=== PATIENT | female | born 1950 | race Caucasian/White ===

== ENCOUNTER 2024-01-04 08:36 | Outpatient (AMB) | payer MEDICARE, SELFPAY ==
--- NOTE | 2024-01-04 08:43 | A.OFFVIS_ITS ---
Intake Vital Signs 01/04/24 08:48 Height 5 ft 6 in BP 117/64 Blood Pressure Location Lt brachial Position Sitting Pulse 80 Intake Visit Reasons: Colonoscopy Screening Intake Note: Criselda presents in the office as a colonoscopy screening. CC: She states that she is due for a colonoscopy Instructional Support Specialist Required: No Allergies No Known Allergies Allergy (Verified 01/04/24 08:45) Medication List - Last Reconciled 01/04/24 by Roxanne Buckner PA-C calcium carbonate (Calcium) 600 mg PO BID latanoprost 0.005% 1 drp ophthalmic (eye) DAILY HPI HPI Comments History of Present Illness Details A 73 y/o female with personal hx colon polyps- last colon 2019=- Zeroogian- Bowel pattern- normal - maintainf HFD- She has no GI or general issues She takes no prescription medications She has no nausea, vomiting, hematemesis, hematochezia fever chills No cardiac or respiratory issues PFSH Medical History Hx of sigmoidoscopy Surgical History Hx of colonoscopy Family History Sister Clear cell carcinoma Social History (Updated 01/04/24 @ 08:56 by Roxanne Buckner PA-C) Household Members Other:: - no children Alcohol intake: current Comment: social Patient Tobacco Use Status: Never used Tobacco Current occupational status: retired Current occupation: 2014- [employer] Review of Systems Const All systems reviewed & are unremarkable except as noted in HPI and below Card Denies chest pain and Denies dyspnea Resp Denies dyspnea GI Denies abdominal pain, Denies heartburn, Denies diarrhea and Denies nausea Physical Exam Vital Signs: Last Vital Signs Pulse 80 01/04/24 08:48 BP 117/64 01/04/24 08:48 Const General: cooperative, healthy appearing, comfortable and no acute distress Orientation/consciousness: patient oriented x3 Limitations: no limitations Eyes Sclerae: sclerae normal Resp Effort & Inspection: normal respiratory effort Auscultation: clear to auscultation bilaterally, no rales, no rhonchi and no wheezes Cardio Rate: regular rate Rhythm: regular rhythm Heart sounds: S1 normal heart sound present and S2 normal heart sound present GI Palpation (GI): Soft to palpation and nontender Auscultation: normal bowel sounds Skin General skin exam: no rashes or lesions noted Neuro General: patient oriented x3 Extrem General: Yes full ROM Psych Appearance: grossly normal and well kempt Mental Status: mental status grossly normal Speech and movement: Normal speech and movement present and Clear speech present Affect: normal affect and Labile affect present Attitude: cooperative Thought process: Normal thought process present Thought content: Normal thought content present Insight: Good insight present (Psych) Judgement: Good judgement present (Psych) Assessment & Plan Assessment & Plan (1) Hx of colonoscopy with polypectomy: Comment: Discussed procedure, rare risks need for escort Code(s): Z98.890 - Other specified postprocedural states; Z86.010 - Personal history of colonic polyps Plan: Polyp surveillance colonoscopy Plan polyp surveillance colon MG-prep no med issues may call for results Patient Instructions: polyp surveillance colon MG-prep, reviewed literature given no med issues may call for results Coding Level of Care Code New Pt Level 3 (45229) Diagnoses Hx of colonoscopy with polypectomy Z98.890; Z86.010 Time Spent (min) 25
[2024-01-04 08:48] VITALS: BP 117/64; PULSE 80
== END 2024-01-04 09:17 | disposition home or self-care (01) ==
PROVIDERS: PCP Family Medicine; Visit Provider Physician Assistant
DX: Z98.890 Other specified postprocedural states (principal); Z86.010 Personal history of colon polyps
CPT/HCPCS: 99203

== ENCOUNTER → 2024-01-04 08:36 | Outpatient (BNVA) | payer MEDICARE, SELFPAY | PROVIDERS: PCP Family Medicine; Visit Provider Physician Assistant | DX: Z86.010 Personal history of colon polyps (principal); Z98.890 Other specified postprocedural states | CPT/HCPCS: 99202 ==

== ENCOUNTER 2024-05-15 09:34 | Day surgery (SDC) | payer MEDICARE, SELFPAY ==
--- NOTE | 2024-05-13 15:26 | P.CONAN_ITS ---
Documented by User: Mary Ann Persaud NP 05/13/24 15:27 HPI - Anesthesia Eval Consult details Narrative: 74yo F for Colonoscopy PMFSH Active Problems Active Problems: All Active Problems Hx of colonoscopy with polypectomy (Acute) Past Medical History Medical History Hx of sigmoidoscopy Family History Family History Sister Clear cell carcinoma Surgical History Surgical History Hx of colonoscopy Social History Social History (Updated 01/04/24 @ 08:56 by Roxanne Buckner PA-C) Household Members Other:: - no children Alcohol intake: current Comment: social Patient Tobacco Use Status: Never used Tobacco Use of substances other than those prescribed or required for medical reasons: No Are you DNR?: No Advance Directives: No Advance Directives Information Provided: Yes Current occupational status: retired Current occupation: [employer] Allergies Allergy/AdvReac Type Severity Reaction Status Date / Time No Known Allergies Allergy Verified 05/15/24 10:15 Home Medications ?Medication ?Instructions ?Recorded ?Confirmed ?Last Taken ?Type calcium carbonate (Calcium 600) 600 mg PO BID 01/04/24 05/15/24 Unknown History latanoprost 0.005 % eye drops 1 drp ophthalmic (eye) DAILY 01/04/24 05/15/24 Unknown History Assessment and Plan Assessment Anesthesia Assessment: Chart Reviewed Documented by User: Makenna Melara MD 05/15/24 10:38 [facility] Past Medical History Medical History Hx of sigmoidoscopy Family History Family History Sister Clear cell carcinoma Family history of problems with anesthesia: No Surgical History Surgical History Hx of colonoscopy History of Problems with Anesthesia: No Social History Social History (Updated 01/04/24 @ 08:56 by Roxanne Buckner PA-C) Household Members Other:: - no children Alcohol intake: current Comment: social Patient Tobacco Use Status: Never used Tobacco Use of substances other than those prescribed or required for medical reasons: No Are you DNR?: No Advance Directives: No Advance Directives Information Provided: Yes Current occupational status: retired Current occupation: [employer] Allergies Allergy/AdvReac Type Severity Reaction Status Date / Time No Known Allergies Allergy Verified 05/15/24 10:15 Home Medications ?Medication ?Instructions ?Recorded ?Confirmed ?Last Taken ?Type calcium carbonate (Calcium 600) 600 mg PO BID 01/04/24 05/15/24 Unknown History latanoprost 0.005 % eye drops 1 drp ophthalmic (eye) DAILY 01/04/24 05/15/24 Unknown History Exam Airway Mallampati Class: III TM Dist: >3cm Neck ROM: Full Assessment and Plan Assessment Anesthesia Assessment: Anesthesia Plan Discussed Final Anesthetic Review Family History of Problems with Anesthesia: No History of Problems with Anesthesia: No NPO: Yes ASA Class: II Final Preanesthetic Review: No Changes in Pt Med Stat, Meds/Allgs Chart Reviewed, Consent Obtained/Reviewed and Anes Risks/Benef Reviewed Patient Risk: Low Procedure Risk: Low Anesthetic Plan Anesthetic Plan: TIVA Disposition: Standard PACU
[2024-05-15 10:04] VITALS: BP 128/74; PULSE 73; RESP 16; TEMP 36.4; O2SAT 96; BMI 29.9
[2024-05-15] MEDS: Lactated Ringers 1,000 ML 100 ML IVCONT (10:21)
--- NOTE | 2024-05-15 10:34 | MHC.SHP ---
Pre-Procedural Eval Section A - 24 Hr Update-Section A only Date of Service: 05/15/24 Section B - Complete if H&P > 30 days Chief Complaint: Polyp of colon Relevant Family History (Specify if Yes): No Relevant Social History: None Present Medications: see Short Stay Collaborative assessment Medical History: Significant History (glaucoma, hx of colon polyps) History of Previous Operations: Relevant previous surgery/procedure and date(s) (colonoscopy) Allergies: Allergies Allergy/AdvReac Type Severity Reaction Status Date / Time No Known Allergies Allergy Verified 05/15/24 10:15 Review of Systems Sugical H&P ROS: Negative: Constitution, Cardiovascular, Respiratory, Neurological, Psychiatric, Hem-Onc, Allergic/Immunologic, Gastrointestinal, Genitourinary, Musculoskeletal, Integumentary, Endocrine and Eyes/Ears/Nose/Throat Exam Surgical H&P Exam: Normal: HEENT, Normal: Heart, Normal: Lungs, Normal: Extremities, Normal: Abdomen, Normal: Skin and Normal: Neurological Plan Diagnosis/Plan: Unchanged I have reviewed the history and physical and performed a pertinent physical examination on my patient. No changes have occurred unless specified. Time Spent With Patient Time: Total time managing care of this patient today ____ minutes.
--- NOTE | 2024-05-15 10:41 | P.OPN-COLO_ITS ---
Colonoscopy Operative Note Operative Note Date of Service: 05/15/24 Narrative: Operative Information Procedure Description: Colonoscopy Indication: screening, hx of colon polyps Anesthesia: MAC COLONOSCOPY Instrument: Olympus variable stiffness pediatric scope 190L Colonoscopy Monitoring: Vital signs and clinical assessment, continuous EKG monitoring, Pulse oximetry, Carbon Dioxide monitoring and blood pressure monitoring were done throughout the procedure. Colon withdrawal time was 36 minutes. Procedure: The patient was placed in the left lateral decubitis position and pre-procedure medications were administered. After a digital rectal examination of the ano-rectum, the video colonoscope was inserted into the rectum and advanced through the colon to the cecum/TI. The colonoscope was slowly withdrawn in a retrograde panoramic fashion and the colon mucosa was carefully examined including a retroflexed view of the rectum. Findings and interventions are described below. Procedure Difficulty: easy Findings: Terminal Ileum-normal Cecum: x2 flat granular polyps 7-10 mm, raised with eleview and then removed with cold snare, x1 lesion that was close to appendiceal orifice closed with 2 clips Ascending Colon: few tics seen At hepatic flexure: flat granular polyps x 2 noted in the hepatic flexure, 12-14 mm in length removed with cold snare, piece meal and then edges ablated. Transverse Colon -normal Descending Colon:normal Sigmoid Colon: moderate severe diverticulosis Rectum: Retroflexion with small internal hemorrhoids seen, grade I- 10 mm sessile polyp removed with cold snare Anorectum - normal Intervention: cold snare, eleview injection and EMR< clips Colon preparation: [place] Bowel Preparation Scale Right colon; 3 Transverse colon: 3 Left colon; 3 (0 = Unprepared colon segment with mucosa not seen due to solid stool that cannot be cleared. 1 = Portion of mucosa of the colon segment seen, but other areas of the colon segment not well seen due to staining, residual stool and/or opaque liquid. 2 = Minor amount of residual staining, small fragments of stool and/or opaque liquid, but mucosa of colon segment seen well. 3 = Entire mucosa of colon segment seen well with no residual staining, small fragments of stool or opaque liquid) Impression and Post Procedure Diagnosis: diverticulosis colon polyps internal hemorrhoids Plan: High fiber diet leaflet Avoid straining at stool, epsom salts and sitz bath, anusol supps or cream Repeat Colonoscopy in 3-6 months due to subtle flat polyps or earlier if clinically indicated Above findings were reviewed with the patient and relevant handouts were provided if indicated.
[2024-05-15 11:30] VITALS: BP 111/47; PULSE 64; RESP 15; TEMP 36.1; O2SAT 96
[2024-05-15 11:48] VITALS: BP 121/63; PULSE 67; RESP 18; TEMP 36.1; O2SAT 98
== END 2024-05-15 12:11 | disposition home or self-care (01) ==
PROVIDERS: PCP Family Medicine; Visit Provider Internal Medicine Gastroenterology
PROC: 0DJD8ZZ Inspection of Lower Intestinal Tract, Via Natural or Artificial Opening Endoscopic (ICD-10-PCS; CPT 45378; principal; 2024-05-15 11:40)
DX: Z12.11 Encounter for screening for malignant neoplasm of colon (principal); Z86.010 Personal history of colon polyps; D12.0 Benign neoplasm of cecum; D12.3 Benign neoplasm of transverse colon; D12.8 Benign neoplasm of rectum; K57.30 Diverticulosis of large intestine without perforation or abscess without bleeding; K64.0 First degree hemorrhoids; Z79.899 Other long term (current) drug therapy
CPT/HCPCS: 45385; 45381; 88305; J2704

== ENCOUNTER → 2024-05-15 09:34 | Outpatient (BNV) | payer MEDICARE, SELFPAY | PROVIDERS: PCP Family Medicine; Visit Provider Internal Medicine Gastroenterology | DX: Z12.11 Encounter for screening for malignant neoplasm of colon (principal); Z86.010 Personal history of colon polyps; D12.0 Benign neoplasm of cecum; K57.30 Diverticulosis of large intestine without perforation or abscess without bleeding | CPT/HCPCS: 45381; 45385 ==

== ENCOUNTER 2024-11-12 06:33 | Day surgery (SDC) | payer MEDICARE, SELFPAY ==
--- NOTE | 2024-11-11 12:27 | HO.ANESPROP2 ---
Documented by User: Mary Ann Persaud NP 11/11/24 12:27 HPI - Anesthesia Eval Consult details Narrative: 74yo F for Colonoscopy s/p colo 05/2024 with TIVA PMFSH Active Problems Active Problems: All Active Problems Hx of colonoscopy with polypectomy (Acute) Past Medical History Medical History Cataracts, bilateral Pilonidal cyst Hx of sigmoidoscopy Family History Family History Sister Clear cell carcinoma Family history of problems with anesthesia: No Surgical History Surgical History History of total hip replacement Hx of colonoscopy History of Problems with Anesthesia: No Social History Social History Household Members Other:: - no children Alcohol intake: current Comment: social Patient Tobacco Use Status: Never used Tobacco Use of substances other than those prescribed or required for medical reasons: No Are you DNR?: No Advance Directives: No Advance Directives Information Provided: Yes Advance Directives on File: Yes Recently lost weight without trying: No Nutrition Risks: No Nutritional Risk Current occupational status: retired Current occupation: [employer] Allergies Allergy/AdvReac Type Severity Reaction Status Date / Time No Known Allergies Allergy Verified 05/15/24 10:15 Home Medications ?Medication ?Instructions ?Recorded ?Confirmed ?Last Taken ?Type calcium carbonate (Calcium 600) 600 mg PO BID 01/04/24 11/12/24 Unknown History latanoprost 0.005 % eye drops 1 drp ophthalmic (eye) BEDTIME 01/04/24 11/12/24 Unknown History Assessment and Plan Assessment Anesthesia Assessment: Chart Reviewed Final Anesthetic Review Family History of Problems with Anesthesia: No History of Problems with Anesthesia: No Documented by User: Rosanne Porter MD 11/12/24 07:41 PMFSH Past Medical History Medical History Cataracts, bilateral Pilonidal cyst Hx of sigmoidoscopy Family History Family History Sister Clear cell carcinoma Family history of problems with anesthesia: No Surgical History Surgical History History of total hip replacement Hx of colonoscopy History of Problems with Anesthesia: No Social History Social History Household Members Other:: - no children Alcohol intake: current Comment: social Patient Tobacco Use Status: Never used Tobacco Use of substances other than those prescribed or required for medical reasons: No Are you DNR?: No Advance Directives: No Advance Directives Information Provided: Yes Advance Directives on File: Yes Recently lost weight without trying: No Nutrition Risks: No Nutritional Risk Current occupational status: retired Current occupation: [employer] Allergies Allergy/AdvReac Type Severity Reaction Status Date / Time No Known Allergies Allergy Verified 05/15/24 10:15 Home Medications ?Medication ?Instructions ?Recorded ?Confirmed ?Last Taken ?Type calcium carbonate (Calcium 600) 600 mg PO BID 01/04/24 11/12/24 Unknown History latanoprost 0.005 % eye drops 1 drp ophthalmic (eye) BEDTIME 01/04/24 11/12/24 Unknown History Exam Height,Weight and Vital Signs: Height 5 ft 6 in Weight 83.3 kg Vital Signs Temp Pulse Resp BP Pulse Ox O2 Del Method 11/12/24 06:57 97.2 F 73 16 134/79 97 Room Air Airway Mallampati Class: III TM Dist: >3cm Neck ROM: Full Loose/Missing/Broken Teeth: No (Patient denies. Overlapping teeth. ?chip top front) Heart: RRR Lungs: CTAB Assessment and Plan Assessment Anesthesia Assessment: Anesthesia Plan Discussed and Chart Reviewed Final Anesthetic Review Family History of Problems with Anesthesia: No History of Problems with Anesthesia: No NPO: Yes ASA Class: II Final Preanesthetic Review: No Changes in Pt Med Stat, Meds/Allgs Chart Reviewed, Consent Obtained/Reviewed and Anes Risks/Benef Reviewed Patient Risk: Low Procedure Risk: Low Assessment/Block/Sedation in SS: Assess/Block/Sedation-SS Anesthetic Plan Anesthetic Plan: TIVA Disposition: Standard PACU
[2024-11-12 06:47] VITALS: BMI 29.6
[2024-11-12 06:57] VITALS: BP 134/79; PULSE 73; RESP 16; TEMP 36.2; O2SAT 97
[2024-11-12] MEDS: Lactated Ringers 1,000 ML 100 ML IVCONT (07:10)
--- NOTE | 2024-11-12 07:48 | MHC.SHP ---
Pre-Procedural Eval Section A - 24 Hr Update-Section A only Date of Service: 11/12/24 Section B - Complete if H&P > 30 days Chief Complaint: Benign neoplasm of colon, unspecified Relevant Family History (Specify if Yes): No Relevant Social History: None Present Medications: see Short Stay Collaborative assessment Medical History: Significant History (Cataracts, bilateral Pilonidal cyst Hx of sigmoidoscopy) History of Previous Operations: Relevant previous surgery/procedure and date(s) (History of total hip replacement Hx of colonoscopy) Allergies: Allergies Allergy/AdvReac Type Severity Reaction Status Date / Time No Known Allergies Allergy Verified 05/15/24 10:15 Review of Systems Sugical H&P ROS: Negative: Constitution, Cardiovascular, Respiratory, Neurological, Psychiatric, Hem-Onc, Allergic/Immunologic, Gastrointestinal, Genitourinary, Musculoskeletal, Integumentary, Endocrine and Eyes/Ears/Nose/Throat Exam Surgical H&P Exam: Normal: HEENT, Normal: Heart, Normal: Lungs, Normal: Extremities, Normal: Abdomen, Normal: Skin and Normal: Neurological Plan Diagnosis/Plan: Unchanged I have reviewed the history and physical and performed a pertinent physical examination on my patient. No changes have occurred unless specified. Time Spent With Patient Time: Total time managing care of this patient today ____ minutes.
--- NOTE | 2024-11-12 08:16 | HO.OPN-COLON ---
Colonoscopy Operative Note Operative Note Date of Service: 11/12/24 Narrative: Operative Information Procedure Description: Colonoscopy Indication: hx of colon polyps Anesthesia: MAC COLONOSCOPY Instrument: Olympus variable stiffness pediatric scope 190L Colonoscopy Monitoring: Vital signs and clinical assessment, continuous EKG monitoring, Pulse oximetry, Carbon Dioxide monitoring and blood pressure monitoring were done throughout the procedure. Colon withdrawal time was 18 minutes. Procedure: The patient was placed in the left lateral decubitis position and pre-procedure medications were administered. After a digital rectal examination of the ano-rectum, the video colonoscope was inserted into the rectum and advanced through the colon to the cecum/TI. The colonoscope was slowly withdrawn in a retrograde panoramic fashion and the colon mucosa was carefully examined including a retroflexed view of the rectum. Findings and interventions are described below. Procedure Difficulty: easy Findings: Terminal Ileum-not intubated Cecum: x 2 sessile polyps 3-4 mm removed with cold forceps Ascending Colon: x2 flat polyps 10-11 mm lifted with eleview injection and then removed with cold snare, x 1 sessile polyp 7-9 mm removed with cold snare Transverse Colon -normal Descending Colon:normal Sigmoid Colon: moderate diverticulosis Rectum: Retroflexion with small internal hemorrhoids seen, grade I Anorectum - normal Intervention: cold forceps, cold snare, eleview injection and cold snare for EMR Colon preparation: [place] Bowel Preparation Scale Right colon; 2 Transverse colon: 2 Left colon; 2 (0 = Unprepared colon segment with mucosa not seen due to solid stool that cannot be cleared. 1 = Portion of mucosa of the colon segment seen, but other areas of the colon segment not well seen due to staining, residual stool and/or opaque liquid. 2 = Minor amount of residual staining, small fragments of stool and/or opaque liquid, but mucosa of colon segment seen well. 3 = Entire mucosa of colon segment seen well with no residual staining, small fragments of stool or opaque liquid) Impression and Post Procedure Diagnosis: diverticulosis colon polyps x 5 internal hemorrhoids Plan: High fiber diet leaflet Avoid straining at stool, epsom salts and sitz bath, anusol supps or cream Repeat Colonoscopy in 1-2 years or earlier if clinically indicated Above findings were reviewed with the patient and relevant handouts were provided if indicated.
[2024-11-12 08:20] VITALS: BP 95/55; PULSE 65; RESP 15; TEMP 36.1; O2SAT 95
[2024-11-12 08:35] VITALS: BP 135/80; PULSE 71; RESP 18; TEMP 36.1; O2SAT 98
== END 2024-11-12 09:00 | disposition home or self-care (01) ==
PROVIDERS: PCP Family Medicine; Visit Provider Internal Medicine Gastroenterology
PROC: 0DJD8ZZ Inspection of Lower Intestinal Tract, Via Natural or Artificial Opening Endoscopic (ICD-10-PCS; CPT 45378; principal; 2024-11-12 07:30)
DX: Z12.11 Encounter for screening for malignant neoplasm of colon (principal); Z86.0101 Personal history of adenomatous and serrated colon polyps; D12.2 Benign neoplasm of ascending colon; K63.5 Polyp of colon; K57.30 Diverticulosis of large intestine without perforation or abscess without bleeding; K64.0 First degree hemorrhoids; H26.9 Unspecified cataract; Z96.641 Presence of right artificial hip joint; Z79.899 Other long term (current) drug therapy
CPT/HCPCS: 45385; 45380; 45381; 88305; J2003; J2704

== ENCOUNTER → 2024-11-12 06:33 | Outpatient (BNV) | payer MEDICARE, SELFPAY | PROVIDERS: PCP Family Medicine; Visit Provider Internal Medicine Gastroenterology | DX: Z12.11 Encounter for screening for malignant neoplasm of colon (principal); Z86.0101 Personal history of adenomatous and serrated colon polyps; D12.2 Benign neoplasm of ascending colon; K63.5 Polyp of colon; K57.30 Diverticulosis of large intestine without perforation or abscess without bleeding; K64.0 First degree hemorrhoids | CPT/HCPCS: 45380; 45381; 45385 ==